=== PATIENT | male | born 1955 | race Asian ===

== ENCOUNTER 2023-01-11 07:55 | Day surgery (SDC) | payer OTHER ==
[~2023-01-11] VITALS: Ht 182.9 cm; Wt 90.7 kg
[2023-01-11 08:30] VITALS: PULSE 76; RESP 20; TEMP 97.8; O2SAT 97
[2023-01-11] MEDS ORDERED: LIDOCAINE 2%, 20 ML MDV ONE (08:57)
[2023-01-11] MEDS ORDERED: PROPOFOL 200MG/ 20ML VIAL (DIPRIVAN) IV ONE (08:57)
[2023-01-11 10:04] VITALS: BP_SYST 144
== END 2023-01-11 11:25 | disposition home or self-care (01) ==
LOC: SDS 07:55 → SMU 07:56 → SDS 11:25
PROVIDERS: ATTEND Internal Medicine Gastroenterology
DX: Z12.11 Encounter for screening for malignant neoplasm of colon (principal); K62.1 Rectal polyp; K57.30 Diverticulosis of large intestine without perforation or abscess without bleeding; K64.8 Other hemorrhoids; I10 Essential (primary) hypertension; E78.5 Hyperlipidemia, unspecified; E11.9 Type 2 diabetes mellitus without complications; Z88.6 Allergy status to analgesic agent; Z79.899 Other long term (current) drug therapy; Z87.891 Personal history of nicotine dependence
CPT/HCPCS: 45385; 82962; G0378; J2001; J2704; 88305